=== PATIENT | male | born 1985 | race African-American/Black ===

== ENCOUNTER 2018-08-27 14:01 | Emergency (ER) | payer SELFPAY ==
[~2018-08-27] VITALS: Ht 177.8 cm; Wt 140.3 kg
[2018-08-27 14:14] VITALS: BP 147/92
--- NOTE | 2018-08-27 14:18 | NUR ---
PATIENT AMBULATED TO ER BED 12.
--- NOTE | 2018-08-27 14:25 | NUR ---
PATIENT IS A 33 Y/O MALE WHO PRESENTS TO THE ED C/O FOOT PAIN. PT STATES THAT HE HAS GOUT AND HAD A FLARE UP X4 DAYS AGO, WORSE SINCE LAST NIGHT. PT REPORTS 10/10 PAIN AND SWELLING. PATIENT TOOK MOTRIN WITH NO RELIEF. PT STATES THAT PREDNISONE AND ALLOPURINOL HELP. PT DENIES CP, SOB, N/V/D. PT AWAKE AND ALERT, RR EVEN/UNLABORED. PT REPOSITIONED FOR COMFORT, BED IN LOWEST POSITION. ER MD DR. THAKKAR NOTIFIED. WILL CONTINUE TO MONITOR. HX: GOUT, HTN MED: NONE
--- NOTE | 2018-08-27 14:35 | NUR ---
PATIENT BEING EVALUATED BY ER PHYSICIAN.
[2018-08-27] MEDS ORDERED: predniSONE 20 MG TAB PO ONE (14:40)
[2018-08-27] MEDS ORDERED: KETOROLAC 30 MG/ML VIAL IM ONE (14:40)
[2018-08-27 15:02] VITALS: BP 147/92
--- NOTE | 2018-08-27 15:05 | NUR ---
Patient discharged with v/s stable. Written and verbal after care instructions given and explained. Patient alert, oriented and verbalized understanding of instructions. Ambulatory with steady gait. All questions addressed prior to discharge. ID band removed. Patient advised to follow up with PMD. Rx of ALLOPURINOL/PREDNISONE ALSO PT REQUESTED HIGH DOSE IBUPROFEN RX- given. Patient educated on indication of medication including possible reaction and side effects. Opportunity to ask questions provided and answered.
== END 2018-08-27 15:05 | disposition home or self-care (01) ==
LOC: MED 14:01
DX: M10.071 Idiopathic gout, right ankle and foot (principal); I10 Essential (primary) hypertension
CPT/HCPCS: 96372; 99283; J1885; J7512